=== PATIENT | female | born 1955 | race Caucasian/White ===

== ENCOUNTER 2023-11-02 11:32 | Emergency (ER) | payer OTHER ==
[~2023-11-02] VITALS: Ht 167.6 cm; Wt 74.8 kg
[2023-11-02 11:35] VITALS: BP 127/61; PULSE 94; RESP 20
[2023-11-02] MEDS: ACETAMINOPHEN 325 MG TAB PO ONE (15:12)
[2023-11-02] MEDS ORDERED: CYCL5TAB PO (16:16)
[2023-11-02] MEDS ORDERED: IBUP-2070 PO (16:16)
== END 2023-11-02 16:41 | disposition home or self-care (01) ==
LOC: EDH 11:32
DX: S16.1XXA Strain of muscle, fascia and tendon at neck level, initial encounter (principal); S46.911A Strain of unspecified muscle, fascia and tendon at shoulder and upper arm level, right arm, initial encounter; R51.9 Headache, unspecified; E11.9 Type 2 diabetes mellitus without complications; Z79.899 Other long term (current) drug therapy; Z90.49 Acquired absence of other specified parts of digestive tract; V89.2XXA Person injured in unspecified motor-vehicle accident, traffic, initial encounter; Y93.89 Activity, other specified; Y92.488 Other paved roadways as the place of occurrence of the external cause; Y99.8 Other external cause status
CPT/HCPCS: 70450; 72040; 73030